=== PATIENT | male | born 1990 | race Caucasian/White ===

== ENCOUNTER 2019-01-11 10:12 | Emergency (ER) | payer MEDICAID, SELFPAY ==
[2019-01-11 10:16] VITALS: BP 136/87; PULSE 81; RESP 16; TEMP 36.6; O2SAT 97
[2019-01-11] MEDS: Amoxicillin 875/Clav. 125 TAB PO (12:20)
[2019-01-11] MEDS: Benzocaine 20% Gel 30 GM JAR MM (12:20)
--- NOTE | 2019-01-11 12:20 | ED.GENADUL_ITS ---
Discharge Plan Disposition Patient Disposition: HOME Condition: Stable Discharge Details Chief Complaint: DentalOral Clinical Impression: Dental infection Primary Care Provider: Rohit Madirgal ED Provider: Benjamin Duran Home Meds and New Rx's Prescriptions: New amoxicillin-pot clavulanate [Augmentin] 875-125 mg tablet 1 tab PO BID 7 Days Qty: 14 RF: 0 Discharge Instructions Instructions: Dental Abscess (ED) Additional Instructions: For your dental pain you may continue to take 600 mg of ibuprofen along with 1000 mg of Tylenol every 6 hours. You may also use [id number] topical anesthetics just use as directed on packaging. Return to the emergency department for any new or significant worsening of symptoms otherwise it is very important that you follow-up with the dentist early next week for reassessment and definitive care of your tooth fracture Referrals: Rohit Madrigal MD [Primary Care Provider] - (As needed for reassessment if you are unable to get in with a dentist) Discharge Data Discharge Date/Time-TO BE ENTERED AT DEPARTURE: 01/11/19 12:45 Medical Decision Making Patient presenting to the emergency department for chief complaint of dental pain and facial swelling. Patient states 3 days ago he fractured his tooth #10 playing basketball. And initially was mild discomfort but over the past 24 hours he has noted some facial swelling, and severe increase in pain. Physical exam does shows some mild swelling to left upper lip that is midline, no airway distress, no signs of peritonsillar abscess, retropharyngeal abscess, Carlos's angina. Patient does have a fractured tooth #10 with erythema surrounding the base and as noted above mild facial swelling. Do feel there may be a slight infection of the tooth so patient placed upon Augmentin. Did consent patient for dental block which a periapical block was performed using 0.5% of bupivacaine and 1 mL was injected in the base of the tooth. Moderate level of pain relief was achieved. Patient was encouraged to continue use [id number] pain medication as needed for discomfort and follow-up with den tist as soon as possible. Return precautions were discussed. After discussion of diagnosis and plan of care patient has no further needs, questions, or concerns and states clear understanding to return to the emergency department for any worsening symptoms. HPI General Mode of arrival: ambulatory . Date/Time Provider Initiated Documentation: 01/11/19 10:57 . Limitations to Documentation: no limitations . Information obtained by: patient and RN notes reviewed . History of Present Illness 28 year old M presents to the emergency department with the chief complaint of Dental pain, broken, described as severe, with intensity rated at 10. Quality is described as sharp, and is localized to the mouth. Patient started experiencing this day(s) (3) and it has been constant. No relieving factors improve symptom(s), Patient notes no other symptoms.. Patient did receive the following treatments prior to arrival, NSAID Related Data Home Medications Medication Instructions Recorded Confirmed amoxicillin-pot clavulanate 1 tab PO BID 7 Days #14 tab 01/11/19 [Augmentin] Previous Rx's Medication Instructions Recorded amoxicillin-pot clavulanate 1 tab PO BID 7 Days #14 tab 01/11/19 [Augmentin] Allergies Allergy/AdvReac Type Severity Reaction Status Date / Time No Known Allergies Allergy Unverified 01/11/19 10:20 General Stated Complaint: DentalOral RAPHAEL: 5 Review of Systems Constitutional Denies chills and Denies fever(s) ENT Reports as per HPI, Denies change in voice, Reports dental pain, Denies throat swelling and Denies tongue swelling Cardiovascular Denies chest pain and Denies dyspnea Respiratory Denies dyspnea, Denies stridor and Denies wheezing Gastrointestinal Reports system reviewed and no additional complaints, except as docu Allergic/Immunologic Denies throat swelling, Denies tongue swelling and Denies wheezing [facility] Medical History Hernia (Chronic) Surgical History Hx of inguinal hernia surgery (Acute) Social History Smoking/Tobacco Use Status: Current every day Tobacco Type: cigarettes Alcohol Intake: former Drug use: Never Substance use type: does not use Do you feel safe at home: Yes Do you feel safe in your relationship?: Yes Exam Const General: cooperative Orientation: alert, awake and oriented x3 Limitations: mental status not altered [facility] Head: normal to inspection, normocephalic and atraumatic Ears: hearing grossly normal bilaterally, normal mastoids bilaterally and no periauricular adenopathy General nose exam: external nose normal Mouth: oropharynx normal, no drooling, no muffled voice, normal tongue and no trismus Teeth and gingiva: caries, poor dentition and other (Partially fractured tooth 10 erythema surrounding the base of the tooth) Throat: posterior oropharynx normal, tonsils normal and uvula midline Eyes General: appearance normal, both eyes and all related structures Pupils: PERRL Neck Neck: normal visual inspection, full ROM, no lymphadenopathy, no meningeal signs, trachea midline, supple, no anterior neck swelling and no midline deformity Resp Effort & Inspection: normal respiratory effort and able to speak in complete sentences Course Vital Signs Temperature 36.6 C 01/11/19 10:16 Pulse 81 01/11/19 10:16 Respiratory Rate 16 01/11/19 10:16 Blood Pressure 136/87 01/11/19 10:16 Pulse Oximetry 97 01/11/19 10:16 Temperature 36.6 C 01/11/19 10:16 Temperature Source Skin 01/11/19 10:16 Pulse 81 01/11/19 10:16 Respiratory Rate 16 01/11/19 10:16 Respiratory Effort Non-Labored 01/11/19 10:18 Blood Pressure 136/87 01/11/19 10:16 Pulse Oximetry 97 01/11/19 10:16 Pain Level 10 01/11/19 10:20
== END 2019-01-11 12:45 | disposition home or self-care (01) ==
PROVIDERS: Emergency Provider Nurse Practitioner Family; PCP General Practice
DX: K04.7 Periapical abscess without sinus (principal); S02.5XXA Fracture of tooth (traumatic), initial encounter for closed fracture; X58.XXXA Exposure to other specified factors, initial encounter
CPT/HCPCS: 99283

== ENCOUNTER 2019-06-26 13:05 | Emergency (ER) | payer MEDICAID, SELFPAY ==
[2019-06-26 13:10] VITALS: BP 113/89; PULSE 80; RESP 18; TEMP 36.4; O2SAT 98
--- NOTE | 2019-06-26 13:17 | ED.GENADUL_ITS ---
Discharge Plan Disposition Patient Disposition: HOME Condition: Stable Discharge Details Chief Complaint: RashLesion Clinical Impression: Ringworm of body Primary Care Provider: Andie,Local ED Provider: Eros Zimmerman Home Meds and New Rx's Prescriptions: New miconazole nitrate 2 % cream 1 applic TP BID 21 Days Qty: 14 RF: 1 Discharge Instructions Instructions: Skin Yeast Infection (ED) Additional Instructions: Please take antifungal agent as prescribed for a minimum of 2 weeks, and I have prescribed for 3 weeks. Return for the development of fever, spreading lesions, or any other acute concern. Stand Alone Forms: Work Release Medical Decision Making 29-year-old healthy male with 3 annular, pruritic, erythematous lesions with overlying scaly rash of his left arm. They are consistent with a ringworm. Will treat with a topical antifungal. Discussed with him home management. You stable and appropriate for outpatient management. HPI General Mode of arrival: ambulatory . Date/Time Provider Initiated Documentation: 06/26/19 13:07 . Limitations to Documentation: no limitations . Information obtained by: patient . History of Present Illness 29 year old M presents to the emergency department with the chief complaint of Left arm annular lesions, described as mild, Quality is described as other (Itching), and is localized to the left and upper extremity. Patient started experiencing this day(s) and it has been constant. No relieving factors improve symptom(s), No exacerbating factors reported . Patient notes no other symptoms.. Patient did receive the following treatments prior to arrival, none Related Data Home Medications Medication Instructions Recorded Confirmed miconazole nitrate 1 applic TP BID 21 Days #14 gm 06/26/19 Previous Rx's Medication Instructions Recorded miconazole nitrate 1 applic TP BID 21 Days #14 gm 06/26/19 Allergies Allergy/AdvReac Type Severity Reaction Status Date / Time No Known Allergies Allergy Unverified 06/26/19 13:12 General Stated Complaint: RashLesion RAPHAEL: 4 Review of Systems Narrative: 3 systems reviewed and otherwise negative [facility] Medical History Hernia (Chronic) Social History Smoking/Tobacco Use Status: Current every day Tobacco Type: cigarettes Alcohol Intake: former Drug use: Never Substance use type: does not use Do you feel safe at home: Yes Do you feel safe in your relationship?: Yes Exam Narrative Exam Narrative: GEN: awake, alert, oriented 3. Pleasant, well groomed, interactive. HEAD: Normocephalic, atraumatic EXT: Full ROM, no edema, 3 discrete areas of annular, erythematous, blanching lesions of the left forearm and hand. There is scaling of the skin present. Neuro: Grossly normal neurologic exam, conversant, interactive. Psych: Speech fluent, thoughts congruent, affect normal Course Vital Signs Vital signs: Vital Signs Temperature 36.4 C L 06/26/19 13:10 Pulse 80 06/26/19 13:10 Respiratory Rate 18 06/26/19 13:10 Blood Pressure 113/89 06/26/19 13:10 Pulse Oximetry 98 06/26/19 13:10 Temperature 36.4 C L 06/26/19 13:10 Temperature Source Skin 06/26/19 13:10 Pulse 80 06/26/19 13:10 Respiratory Rate 18 06/26/19 13:10 Respiratory Effort Non-Labored 06/26/19 13:13 Blood Pressure 113/89 06/26/19 13:10 Blood Pressure Position Sitting 06/26/19 13:10 Pulse Oximetry 98 06/26/19 13:10 Oxygen Delivery Method Room Air 06/26/19 13:10 Oxygen Flow Rate 0 06/26/19 13:10 Pain Level 0 06/26/19 13:10
== END 2019-06-26 13:29 | disposition home or self-care (01) ==
PROVIDERS: Emergency Provider Emergency Medicine
DX: B35.4 Tinea corporis (principal)
CPT/HCPCS: 99283

== ENCOUNTER 2019-07-04 03:35 | Emergency (ER) | payer MEDICAID, SELFPAY ==
--- NOTE | 2019-07-04 03:38 | ED.GENADUL_ITS ---
Discharge Plan Disposition Patient Disposition: HOME Condition: Good Discharge Details Chief Complaint: RashLesion Clinical Impression: Topical medication dermatitis, Tinea corporis Primary Care Provider: Andie,Local ED Provider: Francesco Burroughs Meds and New Rx's Prescriptions: New ketoconazole 2 % foam 1 applic TP BID 28 Days Qty: 100 RF: 0 Discontinued miconazole nitrate 2 % cream 1 applic TP BID 21 Days Qty: 14 RF: 1 Discharge Instructions Additional Instructions: Discontinue the miconazole and start using the ketoconazole. Only apply the medication to the areas affected not the entire arm. Will refer you to primary care for further management if needed. Care management will be contacting you with primary care physician information. Referrals: Care Management [Provider Group] Medical Decision Making On questioning patient has been using the prescribed cream all over his arm. He has not just been applying it to the area of ringworm. The burning rash that he presents tonight with appears to be a reaction to the miconazole nitrate cream. Will discontinue this. Will place on ketoconazole gel instead. Will refer to care management for assignment of primary care. HPI General Mode of arrival: ambulatory . Date/Time Provider Initiated Documentation: 07/04/19 03:36 . Limitations to Documentation: no limitations . Information obtained by: patient and RN notes reviewed . HPI Narrative: Patient presents to ED for reevaluation of rash. Seen here in the last week for rash on his hand and wrist area. This was felt consistent with ringworm and he was started on miconazole. He now returns with a rash up his entire arm to the antecubital fossa. It is burning in nature. He is concerned that it is ringworm is spreading. Related Data Home Medications Medication Instructions Recorded Confirmed ketoconazole 1 applic TP BID 28 Days #100 gm 07/04/19 Previous Rx's Medication Instructions Recorded ketoconazole 1 applic TP BID 28 Days #100 gm 07/04/19 Allergies Allergy/AdvReac Type Severity Reaction Status Date / Time No Known Allergies Allergy Unverified 07/04/19 03:43 General RAPHAEL: 4 Review of Systems Constitutional Constitutional: Denies fever(s) Integumentary/Breasts Skin/Breast: Reports rash [facility] Medical History (Updated 07/04/19 @ 04:01 by Francesco Burroughs MD) No active medical problems (Acute) Surgical History Hx of inguinal hernia surgery (Acute) Social History Smoking/Tobacco Use Status: Current every day Tobacco Type: cigarettes Alcohol Intake: former Drug use: Never Substance use type: does not use Do you feel safe at home: Yes Do you feel safe in your relationship?: Yes Exam Const General: cooperative, comfortable and no acute distress Skin Other: Annular rash with some central clearing on 3 specific areas of the left hand and distal forearm. More erythematous maculopapular type rash extending up the forearm to the antecubital fossa region.
[2019-07-04 03:40] VITALS: BP 131/100; PULSE 77; RESP 16; TEMP 36.4; O2SAT 100
== END 2019-07-04 04:00 | disposition home or self-care (01) ==
PROVIDERS: Emergency Provider Emergency Medicine
DX: L25.1 Unspecified contact dermatitis due to drugs in contact with skin (principal); T49.0X5A Adverse effect of local antifungal, anti-infective and anti-inflammatory drugs, initial encounter; B35.4 Tinea corporis
CPT/HCPCS: 99283

== ENCOUNTER 2023-07-25 17:36 | Emergency (ER) | payer MEDICAID, SELFPAY ==
[2023-07-25 17:39] VITALS: BP 119/92; PULSE 77; RESP 16; TEMP 36.5; O2SAT 97
[2023-07-25 17:49] VITALS: BP 119/92; PULSE 77; RESP 16; TEMP 36.5; O2SAT 97
--- NOTE | 2023-07-25 18:14 | ED.GENADUL_ITS ---
HPI General Mode of arrival: ambulatory . Date/Time Provider Initiated Documentation: 07/25/23 17:46 . Limitations to Documentation: no limitations . Information obtained by: patient, RN notes reviewed and old records reviewed . HPI Narrative: 33-year-old male presents to the ER with a chief complaint of right eye foreign body sensation and tearing. He reports that yesterday he got some sawdust into his eye and has been unable to rinse it out he does report that he feels it moving around. On Weaver lamp examination I did note a small punctate brown Sodus type foreign body noted to the right of his pupil. Does have corneal abrasion noted on both sides of his iris, see physical exam. EOMs are intact. No other associated symptoms or concerns. He reports no visual disturbances. Related Data Home Medications Medication Instructions Recorded Confirmed Unknown [No Known Home Meds] 07/25/23 07/25/23 Allergies Allergy/AdvReac Type Severity Reaction Status Date / Time No Known Allergies Allergy Unverified 07/25/23 17:47 General Stated Complaint: EyeProblem RAPHAEL: 4 Review of Systems All systems reviewed & are unremarkable except as noted in HPI and below Eyes Eyes: Reports as per HPI and Reports irritation Exam Eyes General: appearance normal, both eyes and all related structures Alignment and Position: alignment normal Periorbital: periorbital findings normal Eyelids: eyelids normal Cornea: corneas abnormal on the right fluorescein used, abrasion linear and at the following clock position (3:00 and 7:00) and foreign body wooden (Small punctate, removed with Q-tip); without opacification, no contact lens present, without diffuse punctate uptake, without dendrites present and without ulcerations Pupils: PERRL and normal by confrontation EOM: EOM intact bilaterally Direct ophthalmoscopy: normal light reflex Eyes/upper lids images: 2 1. Corneal abrasion 2. Corneal abrasion 3. Small brown punctate Foreign body Course Vital Signs Vital signs: Vital Signs Temperature 36.5 C 07/25/23 17:39 Pulse 77 07/25/23 17:39 Respiratory Rate 16 07/25/23 17:39 Blood Pressure 119/92 H 07/25/23 17:39 Pulse Oximetry 97 07/25/23 17:39 Temperature 36.5 C 07/25/23 17:49 Temperature Source Oral 07/25/23 17:49 Pulse 77 07/25/23 17:49 Respiratory Rate 16 07/25/23 17:49 Respiratory Effort Normal, Non-Labored 07/25/23 17:49 Blood Pressure 119/92 H 07/25/23 17:49 Blood Pressure Position Supine 07/25/23 17:49 Pulse Oximetry 97 07/25/23 17:49 Oxygen Delivery Method Room Air 07/25/23 17:49 Oxygen Flow Rate 0 07/25/23 17:49 Pain Level 7 07/25/23 17:49 Medical Decision Making 33-year-old male presents to the ER with a chief complaint of right eye foreign body sensation and tearing. He reports that yesterday he got some sawdust into his eye and has been unable to rinse it out he does report that he feels it moving around. On Weaver lamp examination I did note a small punctate brown Sodus type foreign body noted to the right of his pupil. Does have corneal abrasion noted on both sides of his iris, see physical exam. EOMs are intact. No other associated symptoms or concerns. He reports no visual disturbances. Weaver lamp exam performed, uptake and dye noted at 7:00 and 3:00, small punctate foreign body noted which was removed with a Q-tip. Patient tolerated with some difficulty. I did discuss home care including erythromycin ointment which was ordered here and [facility] if [facility]. This text was generated using [employer] dictation system, please disregard any oddities of phrase or misspellings. Quality:SDOH Health Related Social Needs: 2 No Data to Display PFSH All Active Problems (Updated 07/25/23 @ 18:26 by Dolores Hernandez NP) Corneal abrasion, right (Acute) Foreign body in eye (Acute) Inclusion cyst (Acute) Medical History No active medical problems Surgical History Hx of inguinal hernia surgery Social History Smoking/Tobacco Use Status: Current every day Tobacco Type: cigarettes Smoking risk assessment performed?: Yes Alcohol Intake: former Drug use: Never Substance use type: does not use Housing: house Do you feel safe at home: Yes Do you feel safe in your relationship?: Yes Discharge Plan Disposition Patient Disposition: Home Condition: Stable Discharge Details Clinical Impression: Foreign body in eye, Corneal abrasion, right Primary Care Provider: Andie,Local ED Provider: Dolores Hernandez Home Meds and New Rx's Prescriptions: No Action No Known Home Meds Discharge Instructions Instructions: Erythromycin (Into the eye), Corneal Abrasion (ED), Eye Foreign Body (ED) Additional Instructions: Use the erythromycin ointment as directed. Do not rub eye. Please follow-up with ophthalmology should be family eye care or similar in the next 3 to 5 days. Please take Tylenol or Ibuprofen with food every 4-6 hours as needed for pain and swelling. Stand Alone Forms: Work Release Referrals: [facility] [Outside] - 3 days
[2023-07-25] MEDS: Erythromycin Ophth Oint 3.5 GM TUBE OP (18:21)
--- OUTSIDE RECORDS SUMMARY | 2023-07-25 18:38 | XMS_ITS | Continuity of Care Document ---
Author Name Unknown Organization [facility] Address [address] [place] [address] Encounter LTTL_PR FIN NBR [id number] Date(s): 04/02/22 - 04/02/22 [facility] [address] [place], [place] [address] Encounter Diagnosis Contact dermatitis(Discharge Diagnosis) - 04/02/22 Discharge Disposition: Home or Self Care Attending Physician: Alexis Nelson DO Admitting Physician: Alexis Nelson DO Allergies, Adverse Reactions, Alerts No Known Medication Allergies Functional Status 04/02/22 Other exposure to Infectious Disease Non e Medications predniSONE 20 mg oral tablet 40 mg = 2 tab, Oral, Daily, # 10 tab, 0 Refill(s) Start Date: 04/02/22 Status: Ordered Problem List Condition Confirmation Course Effective Dates Status Health [facility] Informant Contact dermatitis Confirmed Active Vital Signs Most recent to oldest [Reference Range]: 1 2 3 Apical Heart Rate [60-100 bpm] 87 bpm (04/02/22 1:28 PM) Blood Pressure [90-140/60-90 mmHg] 137/80mmHg (04/02/22 1:28 PM) 132/91mmHg (04/02/22 1:00 PM) 126/84mmHg (04/02/22 12:18 PM) Weight Dosing 75.00 kg (04/02/22 12:26 PM) Weight Estimated 75.00 kg (04/02/22 12:15 PM) Height/Length Dosing 167.000 cm (04/02/22 12:26 PM) Height/Length Estimated 167.000 cm (04/02/22 12:15 PM) Social History Social History Type Response Tobacco Current everyday tob acco user Tobacco Use:. Sex Hospital Discharge Instructions Patient Education 04/02/2022 12:16:50 Contact Dermatitis Contact Dermatitis Dermatitis is redness, soreness, and swelling (inflammation) of the skin. Contact dermatitis is a reaction to certain substances that touch the skin. Many different substances can cause contact dermatitis. There are two types of contact dermatitis: ??? Irritant contact dermatitis. This type is caused by something that irritates your skin, such ashaving dry hands from washing them too often with soap. This type does not require previous exposure to the substance for a reaction to occur. This is the most common type. ??? Allergic contact dermatitis. This type is caused by a substance that you are allergic to, such as poison amelia. This type occurs when you have been exposed to the substance (allergen) and develop asensitivity to it. Dermatitis may develop soon after your first exposure to the allergen, or it maynot develop until the next time you are exposed and every time thereafter. What are the causes? Irritant contact dermatitis is most commonly caused by exposure to: ??? Makeup. ??? Soaps. ??? Detergents. ??? Bleaches. ??? Acids. ??? Metal salts, such as nickel. Allergic contact dermatitis is most commonly caused by exposure to: ??? Poisonous plants. ??? Chemicals. ??? Jewelry. ??? Latex. ??? Medicines. ??? Preservatives in products, such as clothing. What increases the risk? You are more likely to develop this condition if you have: ??? A job that exposes you to irritants or allergens. ??? Certain medical conditions, such as asthma or eczema. What are the signs or symptoms? Symptoms of this condition may occur on your body anywhere the irritant has touched you or is touched by you. ??? Symptoms include: ??? Dryness or flaking. ??? Redness. ??? Cracks. ??? Itching. ??? Pain or a burning feeling. ??? Blisters. ??? Drainage of small amounts of blood or clear fluid from skin cracks. With allergic contact dermatitis, there may also be swelling in areas such as the eyelids, mouth, or genitals. How is this diagnosed? This condition is diagnosed with a medical history and physical exam. ??? A patch skin test may be performed to help determine the cause. ??? If the condition is related to your job, you may need to see an occupational therapist's assistant. How is this treated? This condition is treated by checking for the cause of the reaction and protecting your skin from further contact. Treatment may also include: ??? Steroid creams or ointments. Oral steroid medicines may be needed in more severe cases. ??? Antibiotic medicines or antibacterial ointments, if a skin infection is present. ??? Antihistamine lotion or an antihistamine taken by mouth to ease itching. ??? A bandage (dressing). Follow these instructions at home: Skin care ??? Moisturize your skin as needed. ??? Apply cool compresses to the affected areas. ??? Try applying baking soda paste to your skin. Stir water into baking soda until it reaches a paste-like consistency. ??? Do not scratch your skin, and avoid friction to the affected area. ??? Avoid the use of soaps, perfumes, and dyes. Medicines ??? Take or apply [id number] and prescription medicines only as told by your health care provider. ??? If you were prescribed an antibiotic medicine, take or apply the antibiotic as told by your health care provider. Do not stop using the antibiotic even if your condition improves. Bathing ??? Try taking a bath with: ??? Epsom salts. Follow the instructions on the packaging. You can get these at your local pharmacyor grocery store. ??? Baking soda. Pour a small amount into the bath as directed by your health care provider. ??? Colloidal oatmeal. Follow the instructions on the packaging. You can get this at your local pharmacy or grocery store. ??? Bathe less frequently, such as every other day. ??? Bathe in lukewarm water. Avoid using hot water. Bandage care ??? If you were given a bandage (dressing), change it as told by your health care provider. ??? Wash your hands with soap and water before and after you change your dressing. If soap and water are not available, use hand wash mill operator. General instructions ??? Avoid the substance that caused your reaction. If you do not know what caused it, keep a journal to try to track what caused it. Write down: ??? What you eat. ??? What cosmetic products you use. ??? What you drink. ??? What you wear in the affected area. This includes jewelry. ??? Check the affected areas every day for signs of infection. Check for: ??? More redness, swelling, or pain. ??? More fluid or blood. ??? Warmth. ??? Pus or a bad smell. ??? Keep all follow-up visits as told by your health care provider. This is important. Contact a health care provider if: ??? Your condition does not improve with treatment. ??? Your condition gets worse. ??? You have signs of infection such as swelling, tenderness, redness, soreness, or warmth in the affected area. ??? You have a fever. ??? You have new symptoms. Get help right away if: ??? You have a severe headache, neck pain, or neck stiffness. ??? You vomit. ??? You feel very sleepy. ??? You notice red streaks coming from the affected area. ??? Your bone or joint underneath the affected area becomes painful after the skin has healed. ??? The affected area turns darker. ??? You have difficulty breathing. Summary ??? Dermatitis is redness, soreness, and swelling (inflammation) of the skin. Contact dermatitis brenda reaction to certain substances that touch the skin. ??? Symptoms of this condition may occur on your body anywhere the irritant has touched you or is touched by you. ??? This condition is treated by figuring out what caused the reaction and protecting your skin from further contact. Treatment may also include medicines and skin care. ??? Avoid the substance that caused your reaction. If you do not know what caused it, keep a journal to try to track what caused it. ??? Contact a health care provider if your condition gets worse or you have signs of infection suchas swelling, tenderness, redness, soreness, or warmth in the affected area. This information is not intended to replace advice given to you by your health care provider. Make sure you discuss any questions you have with your health care provider. Document Revised: 09/17/2019 Document Reviewed: 12/11/2018 [employer] Patient Education ?? 2021 [employer] Follow Up Care 04/02/2022 12:15:25 With:Follow up with primary care provider Address: When:5 to 7 days only if needed
== END 2023-07-25 18:32 | disposition home or self-care (01) ==
LOC: ER 18:37
PROVIDERS: Emergency Provider Registered Nurse Emergency
DX: T15.01XA Foreign body in cornea, right eye, initial encounter (principal); S00.251A Superficial foreign body of right eyelid and periocular area, initial encounter; X58.XXXA Exposure to other specified factors, initial encounter; Y93.89 Activity, other specified; Y92.89 Other specified places as the place of occurrence of the external cause; F17.210 Nicotine dependence, cigarettes, uncomplicated
CPT/HCPCS: 99283

== ENCOUNTER 2023-10-03 15:25 | Outpatient (REF) | payer MEDICAID, SELFPAY ==
[2023-10-03 19:42] LABS: Abs Immature Grans 0.01 10^3/uL (0.0-0.06); Absolute Basophil Count 0.04 10^3/uL (0.0-0.2); Absolute Eosinophil Count 0.08 10^3/uL (0.0-0.7); Absolute Lymphocyte Count 2.32 10^3/uL (1.2-3.4); Absolute Monocyte Count 0.58 10^3/uL (0.1-0.8); Absolute Neutrophil Count 3.79 10^3/uL (1.2-6.7); Basophils % 0.6; Eosinophils % 1.2; HCT 46.1 % (40.0-50.0); Immature Grans % 0.1; MCH 30.2 pg (27.0-33.0); MCHC 34.7 % (32.0-36.0); MCV 87 fL (80-95); MPV 10.5 fL (8.0-11.0); Monocytes % 8.5; Neutrophils % 55.6; Platelet Count 205 10^3/uL (130-400); RBC 5.29 10^6/uL (4.36-5.78); RDW 11.7 % (11.8-14.1); RDW-SD 37.5 fL; WBC 6.82 10^3/uL (4.4-10.8)
[2023-10-03 20:04] LABS: ALT 62 U/L (16-63); AST 31 U/L (15-37); Albumin 4.3 g/dL (3.4-5.0); Alkaline Phosphatase 61 U/L (46-116); Anion Gap 7.9 mmol/L (3-11); BUN 10 mg/dL (7-18); Bilirubin, Total 0.7 mg/dL (0.2-1.0); CO2 29.1 mmol/L (21.0-32.0); CREATININE 0.9 mg/dL (0.70-1.30); Calcium 8.8 mg/dL (8.5-10.1); Chloride 104 mmol/L (98-107); Estimated GFR 115.65 (mL/min/1.73m2); FREE T4 0.92 ng/dL (0.76-1.46); Glucose 82 mg/dL (74-106); Potassium 3.9 mmol/L (3.5-5.1); Sodium 141 mmol/L (136-145); TSH 1.68 uIU/Ml (0.36-3.74); Total Protein 7.7 g/dL (6.4-8.2)
[2023-10-03 20:11] LABS: Hemoglobin A1C 5.5 % (<5.7)
== END 2023-10-03 15:26 | disposition home or self-care (01) ==
LOC: NCHCN 15:25
PROVIDERS: PCP Physician Assistant; Visit Provider Nurse Practitioner Family
DX: R41.840 Attention and concentration deficit (principal)
CPT/HCPCS: 80053; 83036; 84439; 84443; 85025